=== PATIENT | female | born 1960 ===

== ENCOUNTER → 2020-11-17 | Outpatient (CLI) | payer SELFPAY ==
[~2020-11-17] MED LIST: COVID-19 VACCINE (PFIZER)/PF 30 MCG/0.3 ML VIAL IM ONE; EPINEPHRINE INJ/PF 1 MG/1 ML AMPULE IM PRN
== END ==
LOC: EMPHEALTH 09:03
PROVIDERS: ATTEND Internal Medicine
DX: Z23 Encounter for immunization (principal)
CPT/HCPCS: 91300

== ENCOUNTER → 2020-12-08 | Outpatient (CLI) | payer SELFPAY ==
--- OUTSIDE RECORDS SUMMARY | 2020-12-08 14:29 | XMS REPORT ---
:1960 [facility] [address] [place] [address] Care Team Providers Name Role Phone MARLON ANDERSON Primary Care Physician Unavailable ROBYN Attending Clinician Unavailable JAMES TOSCANO Attending Clinician Unavailable DI HARMON Attending Clinician Unavailable ODILIA ANDERSON Attending Clinician Unavailable PROVIDER, ORDERING Attending Clinician Unavailable ROBYN Admitting Clinician Unavailable Allergies, Adverse Reactions, Alerts This patient has no known allergies or adverse reactions. Medications Ordered Filled Start Stop Current Ordering Indication Dosage Frequency Signature Comments Components Medication Medication Date Date Medication? Clinician (SIG) Name Name buPROPion 2018-11 Yes Attention TAKE 1 TAKE 1 (WELLBUTRIN 2-17 deficit TABLET BY TA BLET BY XL) 150 MG 00:00: disorder, MOUTH MOUT H 24 hr 00 unspecified EVERY EVERY tablet hyperactivi MORNING MORNI NG ty presence buPROPion 2018-11- No Attention TAKE 1 TAKE 1 (WELLBUTRIN 1-21 12-17 deficit TABLET BY TA BLET BY XL) 150 MG 00:00: 00:00 disorder, MOUTH MOUT H 24 hr 00 :00 unspecified EVERY EVERY tablet hyperactivi MORNING MORNI NG ty presence buPROPion 2018-11- No Attention 150mg Take 1 Take 1 (WELLBUTRIN 1-18 11-21 deficit tablet table t XL) 150 MG 00:00: 00:00 disorder, (150 mg (1 50 mg 24 hr 00 :00 unspecified total) by bradley muñoz) by tablet hyperactivi mouth mouth ty presence every every morning. morning. butalbital- Yes Nonintracta 1{capsu Take 1 Take 1 acetaminoph 8-27 ble le} capsule by dorinda mora en-caff 00:00: headache, mouth by mout h (FIORICET) 00 unspecified every six every six 50-300-40 chronicity (6) hours ( 6) hours mg cap pattern, as needed as nee ded unspecified for for headache headache. headach e. type meclizine Yes Vertigo 12.5mg Take 1 Take 1 (ANTIVERT) 07-14 tablet tablet 12.5 mg 00:00: (12.5 mg (12.5 mg tablet 00 total) by total) by mouth mouth Three (3) Three (3) times a times a day as day as needed. needed. valACYclovi Yes Fever 1000mg Take 1 Take 1 r (VALTREX) 07-14 blister tablet table t 1000 MG 00:00: (1,000 mg (1,000 mg tablet 00 total) by total) by mouth mouth Three (3) Three (3) times a times a day. day. buPROPion 2019- No Attention 150mg Take 1 Take 1 (WELLBUTRIN 07-1418 deficit tablet table t XL) 150 MG 00:00: 00:00 disorder, (150 mg (1 50 mg 24 hr 00 :00 unspecified total) by bradley muñoz) by tablet hyperactivi mouth mouth ty presence every every morning. morning. valACYclovi 2019- No Fever 1000mg Take 1 Take 1 r (VALTREX) 07-14 blister tablet table t 1000 MG 00:00: 00:00 (1,000 mg (1,000 mg tablet 00 :00 total) by total) by mouth mouth Three (3) Three (3) times a times a day. day. meclizine 2018- No Vertigo 12.5mg Take 1 Take 1 (ANTIVERT) 07-14 tablet tablet 12.5 mg 00:00: 00:00 (12.5 mg (12.5 mg tablet 00 :00 total) by total) by mouth mouth Three (3) Three (3) times a times a day as day as needed. needed. butalbital- 2019- No Nonintracta 1{capsu Take 1 Take 1 acetaminoph 07-14 ble le} capsule by dorinda mora en-caff 00:00: 00:00 headache, mouth by mout h (FIORICET) 00 :00 unspecified every six every six 50-300-40 chronicity (6) hours ( 6) hours mg cap pattern, as needed as nee ded unspecified for for headache headache. headach e. type buPROPion 2018- No Attention 150mg Take 1 Take 1 (WELLBUTRIN 07-14 deficit tablet table t XL) 150 MG 00:00: 00:00 disorder, (150 mg (1 50 mg 24 hr 00 :00 unspecified total) by bradley muñoz) by tablet hyperactivi mouth mouth ty presence every every morning. morning. butalbital- 2018- No TAKE 1 TAKE 1 acetaminoph 05-06 CAPSULE BY DORINDA SHAMIR en-caff 00:00: 00:00 MOUTH BY MOUTH (FIORICET) 00 :00 THREE THREE 50-300-40 TIMES TIMES mg cap DAILY DAILY NEEDED FOR NEEDED HEADACHE FOR HEADACHE valACYclovi 2018- No TAKE 1 TAKE 1 r (VALTREX) 05-05 TABLET(100 TAB LET(10 1000 MG 00:00: 00:00 0 MG) BY 00 MG) B Y tablet 00 :00 MOUTH MOUTH THREE THREE TIMES TIMES DAILY DAILY gabapentin No 100mg Take 1 Take 1 (NEURONTIN) 03-23 capsule capsul e 100 MG 00:00: 00:00 (100 mg (100 mg capsule 00 :00 total) by total) b y mouth mouth Three (3) Three (3) times a times a day. for day. for 15 days 15 days butalbital- 2018- No 1{tbl} Take 1 Take 1 acetaminoph 2-20 02-20 tablet by tabl et by en-caffeine 18:33: 00:00 mouth mouth (FIORICET, 37 :00 every four ever y ESGIC) (4) hours four (4) 50-325-40 as needed hours as mg per for pain. needed tablet for pain. oxyCODONE-a 2018- No 1{tbl} Take 1 Take 1 cetaminophe 2-20 02-20 tablet by tabl et by n 13:10: 00:00 mouth mouth (PERCOCET) 49 :00 every six every six 5-325 mg (6) hours (6) blanche rs per tablet as needed as ne eded for pain. for pain. oxyCODONE-a 2019- No 1{tbl} Take 1-2 Alton e 1-2 cetaminophe 2-20 -27 tablets by tab lets n 00:00: 23:59 mouth by mouth (PERCOCET) 00 :00 every four ever y 5-325 mg (4) hours four (4 ) per tablet as needed hours as for pain. needed for up to for pain. 7 days for up to 7 days oxyCODONE-a 2019- No 1{tbl} Take 1-2 Alton e 1-2 cetaminophe 2-20 02-20 tablets by tab lets n 00:00: 00:00 mouth by mouth (PERCOCET) 00 :00 every four ever y 5-325 mg (4) hours four (4 ) per tablet as needed hours as for pain. needed for pain. cyclobenzap 2018- No 5mg Take 5 mg Alton e 5 mg rine 2-18 - by mouth by mouth (FLEXERIL) 13:29: 00:00 Three (3) Thre e (3) 5 MG tablet 12 :00 times a times a day as day as needed for needed muscle for spasms. muscle spasms. meclizine 2018- 2019- No 12.5mg Take 12.5 Take 12.5 (ANTIVERT) 2-18 08-27 mg by mg by 12.5 mg 13:29: 00:00 mouth mouth tablet 12 :00 Three (3) Three (3) times a times a day as day as needed. needed. oxyCODONE-a 2019- No TK 1 T PO TK 1 T PO cetaminophe 12-24 Q 6 H PRN Q 6 H PRN n 00:00: 00:00 (PERCOCET) 00 :00 5-325 mg per tablet cyclobenzap 2017-11 2019- No SI 5MG Take 1 Take 1 rine 12-24 (sacroiliac tablet (5 tabl et (5 (FLEXERIL) 00:00: 00:00 ) joint mg total) mg total) 5 MG tablet 00 :00 inflammatio by mouth by mouth n (CMS-HCC) Three (3) Thre e (3) times a times a day as day as needed for needed muscle for spasms. muscle spasms. HYDROcodone 2017-11- No SI 1{tbl} Take 1 Take 1 -acetaminop 12-24 (sacroiliac tablet b y tablet by adrian (NORCO) 00:00: 00:00 ) joint mouth mouth 5-325 mg 00 :00 inflammatio every four every per tablet n (CMS-HCC) (4) hours four (4) as needed hours as for pain. needed for pain. butalbital- 2017-11- No 1{capsu Take 1 Take 1 acetaminoph 11-26 le} capsule by cap shamir en-caff 00:00: 00:00 mouth by mouth (FIORICET) 00 :00 Three (3) Three (3) 50-300-40 times a times a mg cap day as day as needed for needed headache. for headache. ALPRAZolam 2018- No Anxiety .25MG Take 1 Take 1 (XANAX) 06-25 tablet tablet 0.25 MG 00:00: 00:00 (0.25 mg (0.25 mg tablet 00 :00 total) by total) by mouth mouth Three (3) Three (3) times a times a day as day as needed for needed anxiety. for anxiety. valACYclovi 2018- No 1000MG Take 1 Take 1 r (VALTREX) 06-23 tablet tablet 1000 MG 00:00: 00:00 (1,000 mg (1,000 mg tablet 00 :00 total) by total) by mouth mouth Three (3) Three (3) times a times a day. day. butalbital- 2017- No 1{capsu Take 1 Take 1 acetaminoph 06-23 le} capsule by cap shamir en-caff 00:00: 00:00 mouth by mouth (FIORICET) 00 :00 Three (3) Three (3) 50-300-40 times a times a mg cap day as day as needed for needed headache. for headache. diclofenac 2018- No 75MG Take 1 Take 1 (VOLTAREN) 05-2912 tablet (75 tabl et 75 MG EC 00:00: 23:59 mg total) (75 mg tablet 00 :00 by mouth total) by two (2) mouth two times a (2) times day as a day as needed needed (foot (foot pain). pain). meclizine 2018- No Vertigo 12.5mg Take 1 Take 1 (ANTIVERT) 03-14 tablet tablet 12.5 mg 00:00: 00:00 (12.5 mg (12.5 mg tablet 00 :00 total) by total) by mouth mouth Three (3) Three (3) times a times a day as day as needed. needed. butalbital- 2017- No 1{capsu Take 1 Take 1 acetaminoph 406-23 le} capsule by cap shamir en-caff 00:00: 00:00 mouth by mouth (FIORICET) 00 :00 Three (3) Three (3) 50-300-40 times a times a mg cap day as day as needed for needed headache. for headache. DULoxetine 2017- No Anxiety 60MG Take 1 Take 1 (CYMBALTA) 02-07 07-12 capsule capsule 60 MG 00:00: 00:00 (60 mg (60 mg capsule 00 :00 total) by total) b y mouth mouth daily. daily. oseltamivir No 75MG Take 1 Take 1 (TAMIFLU) 215 02-20 capsule capsule 75 MG 00:00: 23:59 (75 mg (75 mg capsule 00 :00 total) by total) b y mouth mouth every every twelve twelve (12) (12) hours. for hours. 5 days for 5 days lisdexamfet No 40MG Take 1 Take 1 amine 2-09 capsule capsule (VYVANSE) 00:00: (40 mg (40 mg 40 MG 00 total) by total) by capsule mouth mouth every every morning. morning. DULoxetine No Anxiety TAKE 1 TAKE 1 (CYMBALTA) 1-08 CAPSULE(30 CAPS ULE(3 30 MG 00:00: MG) BY 0 MG) BY capsule 00 MOUTH MOUTH TWICE TWICE DAILY DAILY tiZANidine 2016-11- No 4mg Take 1 Take 1 (ZANAFLEX) 0-13 10-13 tablet (4 table t (4 4 MG tablet 00:00: 23:59 mg total) mg total) 00 :00 by mouth by mouth every every eight (8) eight (8) hours as hours as needed. needed. diclofenac 2016-11- No 75mg Take 1 Take 1 (VOLTAREN) 013 -12 tablet (75 tabl et 75 MG EC 00:00: 00:00 mg total) (75 mg tablet 00 :00 by mouth total) by Two (2) mouth Two times a (2) times day. a day. ALPRAZolam 2017- No Anxiety .25mg Take 1 Take 1 (XANAX) 06-26 tablet tablet 0.25 MG 00:00: 00:00 (0.25 mg (0.25 mg tablet 00 :00 total) by total) by mouth mouth Three (3) Three (3) times a times a day as day as needed for needed anxiety. for anxiety. fluticasone 2018- No Headache, 2{spray 2 spray s 2 sprays (FLONASE) 08-17 unspecified } by Each by Each 50 00:00: 00:00 headache Nare route Nare mcg/actuati 00 :00 type daily. route on nasal daily. spray valACYclovi 2017- No TAKE 1 TAKE 1 r (VALTREX) 03-11 TABLET BY TABL ET BY 1000 MG 00:00: 00:00 MOUTH 3 MOUTH 3 tablet 00 :00 TIMES A TIMES A DAY DAY ESTRACE 2019- No ESTRACE 0.01 % (0.1 07-20 0.01 % mg/gram) 00:00: 00:00 (0.1 vaginal 00 :00 mg/gram) cream vaginal cream Problems Condition Condition Condition Status Onset Resolution Last Treatin g Comments Name Details Category Date Date Treatment Clinician Date Lumbar Lumbar 10239754 Active 2019-07-14 spinal spinal 07-14 14:19:44 stenosis stenosis 00:00: 00 Anxiety Anxiety Condition Active 2018-02-07 3 14:24:08 00:00: 00 ADD ADD Problem Inactive 2015-112016-10-26 (attention (attention 12-27 10:39:15 deficit deficit 00:00: disorder) disorder) 00 ADD ADD Condition Inactive 2015-112016-10-26 (attention (attention 12-27 10:39:15 deficit deficit 00:00: disorder) disorder) 00 ADD ADD [id number] Active 2015-1109 (attention (attention 12-27 10:39:15 deficit deficit 00:00: disorder) disorder) 00 Procedures Procedure Date / Time Performed Performing Clinician Sunil nicholson MRI LUMBAR SPINE WO CONTRAST 2019-03-27 19:59:00 Olivia Perry MRI LUMBAR SPINE WO CONTRAST 2019-03-27 19:59:00 Olivia Perry XR LUMBAR SPINE LATERAL 2019-01-07 13:50:11 Olivia Perry MRI LUMBAR SPINE WO CONTRAST 2018-11-26 10:33:19 Hannah Toscano XR KNEE BILATERAL AP STANDING 2018-05-29 20:20:28 Debra Harmon XR KNEE 2 VIEWS LEFT 2018-05-29 20:20:16 Az Harmon Results Test Description Test Time Test Comments Text Results Atomic Results Result Comments #[id number] 2019-03-27 MRI Lumbar Spi ne Wo Contrast (03/27/2019 15:59:00 3:59 PM EDT)SpecimenImpressi onsPerformed At1. Since the last MRI of , the patient has had a right mackenzie laminectomy at L4-5 with resection of the r ight ligamentum flavum. This has resulted in decreased severity of canal stenosis.2 . The lower lumbar canal is narrow on a developmental basis due to short pedicles. 3. The combination of short pedicle s, disc bulge, and facet hypertrophy at L4- 5 results in moderate/severe narrowing of the lateral recesses, which is unchanged .4. Facet arthropathy at L2-3, L3-4, a nd L5-S1 without canal stenosis, late ral recess narrowing, or foraminal narr owing. This is unchanged.5. Very mild centr al disc protrusion at L1-2, unchange d.[facility] RADNarrativePerformed AtExam :Lumbar Spine MRI without Contrast History:Right leg pain, recent lumbar laminectomy Technique:Co mplete MRI of the lumbar spine without con trast. Comparison:Lumbar spine MRI of 11/26/2018 Findings: There is no lumbar scoliosis. There is normal lumbar lordo sis. There is no malalignment. The pars in terarticulares are intact at all lumbar lev els. There is no compression fracture. Mar row signal intensity is normal througho ut the lumbar spine. The intervertebral di scs are normal in signal intensity and stat ure. The conus medullaris is normal in cont our, location, and signal intensity. The ti p of the conus is at the L1-2 level. The lo wer lumbar canal is narrow on a develop mental basis due to short pedicles. T11-1 2 and T12-L1: Normal. L1-2: There is a bautista y mild central disc protrusion without selene l stenosis or foraminal narrowing. L2-3: T here is mild chronic degenerative hypertr ophy of the zygapophyseal joints and mil d chronic degenerative hypertrophy of the ligamenta flava without canal stenosis or foraminal narrowing. L3-4: There is mi ld chronic degenerative hypertrophy of the zygapophyseal joints and mil d chronic degenerative hypertrophy of the ligamenta flava without canal stenosis or foraminal narrowing. L4-5: There is a mild central disc bulge. The patient has had a right hemilaminectomy with resecti on of the right ligamentum flavum since the last MRI. There is mild/moderate chronic deg enerative hypertrophy of the zygapophy seal joints and left ligamentum flavum, whic h is unchanged. Combined with short pedicles , these findings result in mild selene l stenosis and moderate/severe narrowing of the lateral recesses without significant foraminal narrowing. Compared to the p reoperative MRI of 11/26/2018, canal stenosis is decreased and lateral recess narrowing is unchanged. L5-S1: There is moderate chr onic degenerative hypertrophy of the zygapophyseal joints without hypertrophy of the ligamenta flava. There i s no canal stenosis, lateral recess nagi rowing, or foraminal narrowing. [facility] Procedure NoteInterface, Rad Results I n - 03/27/2019 4:16 PM EDTExam: Lumbar Spin e MRI without Contrast History: Right leg pain, recent lumbar laminectomy Technique : Complete MRI of the lumbar spine without contrast. Comparison: Lumbar spine MRI of 11/26/2018 Findings: There is no lumbar scoliosis. There is normal lumbar lordo sis. There is no malalignment. The pars in terarticulares are intact at all lumbar lev els. There is no compression fracture. Mar row signal intensity is normal througho ut the lumbar spine. The intervertebral di scs are normal in signal intensity and stat ure. The conus medullaris is normal in cont our, location, and signal intensity. The ti p of the conus is at the L1-2 level. The lo wer lumbar canal is narrow on a develop mental basis due to short pedicles. T11-1 2 and T12-L1: Normal. L1-2: There is a bautista y mild central disc protrusion without selene l stenosis or foraminal narrowing. L2-3: T here is mild chronic degenerative hypertr ophy of the zygapophyseal joints and mil d chronic degenerative hypertrophy of the ligamenta flava without canal stenosis or foraminal narrowing. L3-4: There is mi ld chronic degenerative hypertrophy of the zygapophyseal joints and mil d chronic degenerative hypertrophy of the ligamenta flava without canal stenosis or foraminal narrowing. L4-5: There is a mild central disc bulge. The patient has had a right hemilaminectomy with resecti on of the right ligamentum flavum since the last MRI. There is mild/moderate chronic deg enerative hypertrophy of the zygapophy seal joints and left ligamentum flavum, whic h is unchanged. Combined with short pedicles , these findings result in mild selene l stenosis and moderate/severe narrowing of the lateral recesses without significant foraminal narrowing. Compared to the p reoperative MRI of 11/26/2018, canal stenosis is decreased and lateral recess narrowing is unchanged. L5-S1: There is moderate chr onic degenerative hypertrophy of the zygapophyseal joints without hypertrophy of the ligamenta flava. There i s no canal stenosis, lateral recess nagi rowing, or foraminal narrowing. IMPRESS ION: 1. Since the last MRI of 11/26/2018, th e patient has had a right hemilaminectomy at L4-5 with resection of the right ligam entum flavum. This has resulted in decreas ed severity of canal stenosis. 2. The lower lumbar canal is narrow on a developmental basis due to short pedicles. 3. The combi nation of short pedicles, disc bulge, and fa cet hypertrophy at L4-5 results in moderate/ severe narrowing of the lateral rec esses, which is unchanged. 4. Facet arthropa thy at L2-3, L3-4, and L5-S1 without selene l stenosis, lateral recess narrowing, or foraminal narrowing. This is unchanged . 5. Very mild central disc protrusion at L 1-2, unchanged.Performing OrganizationAddressCity/Stat e/ZipcodePhone Number[facility] [id number] [place] [address] #[id number] 2019-03-27 MRI Lumbar Spi ne Wo Contrast (03/27/2019 15:59:00 3:59 PM EDT)SpecimenImpressi onsPerformed At1. Since the last MRI of , the patient has had a right mackenzie laminectomy at L4-5 with resection of the r ight ligamentum flavum. This has resulted in decreased severity of canal stenosis.2 . The lower lumbar canal is narrow on a developmental basis due to short pedicles. 3. The combination of short pedicle s, disc bulge, and facet hypertrophy at L4- 5 results in moderate/severe narrowing of the lateral recesses, which is unchanged .4. Facet arthropathy at L2-3, L3-4, a nd L5-S1 without canal stenosis, late ral recess narrowing, or foraminal narr owing. This is unchanged.5. Very mild centr al disc protrusion at L1-2, unchange d.[facility] RADNarrativePerformed AtExam :Lumbar Spine MRI without Contrast History:Right leg pain, recent lumbar laminectomy Technique:Co mplete MRI of the lumbar spine without con trast. Comparison:Lumbar spine MRI of 11/26/2018 Findings: There is no lumbar scoliosis. There is normal lumbar lordo sis. There is no malalignment. The pars in terarticulares are intact at all lumbar lev els. There is no compression fracture. Mar row signal intensity is normal througho ut the lumbar spine. The intervertebral di scs are normal in signal intensity and stat ure. The conus medullaris is normal in cont our, location, and signal intensity. The ti p of the conus is at the L1-2 level. The lo wer lumbar canal is narrow on a develop mental basis due to short pedicles. T11-1 2 and T12-L1: Normal. L1-2: There is a bautista y mild central disc protrusion without selene l stenosis or foraminal narrowing. L2-3: T here is mild chronic degenerative hypertr ophy of the zygapophyseal joints and mil d chronic degenerative hypertrophy of the ligamenta flava without canal stenosis or foraminal narrowing. L3-4: There is mi ld chronic degenerative hypertrophy of the zygapophyseal joints and mil d chronic degenerative hypertrophy of the ligamenta flava without canal stenosis or foraminal narrowing. L4-5: There is a mild central disc bulge. The patient has had a right hemilaminectomy with resecti on of the right ligamentum flavum since the last MRI. There is mild/moderate chronic deg enerative hypertrophy of the zygapophy seal joints and left ligamentum flavum, whic h is unchanged. Combined with short pedicles , these findings result in mild selene l stenosis and moderate/severe narrowing of the lateral recesses without significant foraminal narrowing. Compared to the p reoperative MRI of 11/26/2018, canal stenosis is decreased and lateral recess narrowing is unchanged. L5-S1: There is moderate chr onic degenerative hypertrophy of the zygapophyseal joints without hypertrophy of the ligamenta flava. There i s no canal stenosis, lateral recess nagi rowing, or foraminal narrowing. [facility] Procedure NoteInterface, Rad Results I n - 03/27/2019 4:16 PM EDTExam: Lumbar Spin e MRI without Contrast History: Right leg pain, recent lumbar laminectomy Technique : Complete MRI of the lumbar spine without contrast. Comparison: Lumbar spine MRI of 11/26/2018 Findings: There is no lumbar scoliosis. There is normal lumbar lordo sis. There is no malalignment. The pars in terarticulares are intact at all lumbar lev els. There is no compression fracture. Mar row signal intensity is normal througho ut the lumbar spine. The intervertebral di scs are normal in signal intensity and stat ure. The conus medullaris is normal in cont our, location, and signal intensity. The ti p of the conus is at the L1-2 level. The lo wer lumbar canal is narrow on a develop mental basis due to short pedicles. T11-1 2 and T12-L1: Normal. L1-2: There is a bautista y mild central disc protrusion without selene l stenosis or foraminal narrowing. L2-3: T here is mild chronic degenerative hypertr ophy of the zygapophyseal joints and mil d chronic degenerative hypertrophy of the ligamenta flava without canal stenosis or foraminal narrowing. L3-4: There is mi ld chronic degenerative hypertrophy of the zygapophyseal joints and mil d chronic degenerative hypertrophy of the ligamenta flava without canal stenosis or foraminal narrowing. L4-5: There is a mild central disc bulge. The patient has had a right hemilaminectomy with resecti on of the right ligamentum flavum since the last MRI. There is mild/moderate chronic deg enerative hypertrophy of the zygapophy seal joints and left ligamentum flavum, whic h is unchanged. Combined with short pedicles , these findings result in mild selene l stenosis and moderate/severe narrowing of the lateral recesses without significant foraminal narrowing. Compared to the p reoperative MRI of 11/26/2018, canal stenosis is decreased and lateral recess narrowing is unchanged. L5-S1: There is moderate chr onic degenerative hypertrophy of the zygapophyseal joints without hypertrophy of the ligamenta flava. There i s no canal stenosis, lateral recess nagi rowing, or foraminal narrowing. IMPRESS ION: 1. Since the last MRI of 11/26/2018, th e patient has had a right hemilaminectomy at L4-5 with resection of the right ligam entum flavum. This has resulted in decreas ed severity of canal stenosis. 2. The lower lumbar canal is narrow on a developmental basis due to short pedicles. 3. The combi nation of short pedicles, disc bulge, and fa cet hypertrophy at L4-5 results in moderate/ severe narrowing of the lateral rec esses, which is unchanged. 4. Facet arthropa thy at L2-3, L3-4, and L5-S1 without selene l stenosis, lateral recess narrowing, or foraminal narrowing. This is unchanged . 5. Very mild central disc protrusion at L 1-2, unchanged.Performing OrganizationAddressCity/Stat e/ZipcodePhone Number[facility] [id number] [facility] [place] [address] XR Lumbar Spine 1 View 2019-01-07 XR Lumbar Spine 1 View (01/07/2019 1:50 PM) 13:58:48 Impressions Performed At 1. Posterior localization of the L5-S1 le nviia. Signed (Electronic Signature): 01/07 1:59 PM Signed By: Fabricio Rosas MD [facility] Narrative Performed At Exam: Lumbar Spine - Lateral View History:58-year-old unde rgoing lumbar surgery. Technique:Singl e lateral view Comparison:MRI from 2018 Findings:Localizing need le projects posteriorly directed towards the L5-S1 level. The lateral alignment is anatomic. No evidence of acute fractur e. The disc spaces are normal. There are no focal osseous lesions identified. [facility] Procedure Note Ra srini Banks Results In - 01/07/2019 2:05 PM EST Exam: Lumbar Spine - Lateral View History: 58-yea r-old undergoing lumbar surgery. T echnique: Single lateral view Comparis on: MRI from 11/26/2018 Findings: Localizin g needle projects posteriorly directe d towards the L5-S1 level. The lateral ali gnment is anatomic. No evidence of acu te fracture. The disc spaces are normal. There are no focal osseous lesions identi fied. IMPRESSION: 1. Posterior loc alization of the L5-S1 level. Signed (Rubina ctronic Signature): 01/07/2019 1:59 P M Signed By: Fabricio Rosas MD Performi Organization Address City/State/[facility] P [facility]rin Number [facility] [address] [place] [address] MRI Lumbar Spine Wo Contrast 2018-11-26 MRI Lumbar Spine Wo Contrast (11/26/2018 11:28:11 10:33 AM) Impressions Perfor med At 1. At L4-5, disc and facet degener ation cause moderate canal and mild neur al foraminal stenosis. 2. Disc and facet degeneration elsewhere throughout the lum bar spine without significant neural i mpingement. Signed (Electronic Signature ): 11/26/2018 11:29 AM Signed By: Shaka lancaster MD [facility] Narrative Performed At E xam:MRI Lumbar Spine without contras t History:Pain. Technique: Complete MRI of the lumbar spine with out contrast. Comparison:None. Finding s: Normal alignment. No significant di sc degeneration. No abnormal juan antonio ne marrow signal intensity. No acute f racture or pars defect. Conus terminates nor dirk. Cauda equina nerve roots unremarka ble. Imaged abdomen and pelvic soft tiss ues unremarkable. Lower thoracic levels:No significant focal abnormalit y. L1-2:Mild disc bulge. L2 -3:Very mild disc bulge and mild fac et arthropathy. L3-4:Mild facet arthropa thy. L4-5:Mild disc bulge and moderate facet arthropathy. Moderate canal stenosis. Mild neural foraminal narrowing. L5-S1:Mild to moderate right greater th an left facet arthropathy. No focal disc p athology. [facility] Procedure Note Interface , Rad Results In - 11/26/2018 11:32 AM EST Exam: MRI Lumbar Spine without contras t History: Pain. Technique: Complete MR I of the lumbar spine without contrast. Comp arison: None. Findings: Normal alignment. No significant disc degeneration. No abnorm al bone marrow signal intensity. No acute f racture or pars defect. Conus terminates nor dirk. Cauda equina nerve roots unremarka ble. Imaged abdomen and pelvic soft tiss ues unremarkable. Lower thoracic levels: No significant focal abnormalit y. L1-2: Mild disc bulge. L2-3: Very mild disc bulge and mild facet arthropathy. L3-4 : Mild facet arthropathy. L4-5: Mild disc bulge and moderate facet arthropathy. Moderate canal stenosis. Mild neural forami nal narrowing. L5-S1: Mild to moderate righ t greater than left facet arthropathy. No f ocal disc pathology. IMPRESSION: 1. At L4-5, disc and facet degeneration cause mod erate canal and mild neural foraminal stenos is. 2. Disc and facet degeneration elsewhere throughout the lumbar spine without signifi cant neural impingement. Signed (Electro alex Signature): 11/26/2018 11:29 AM Signed By: Shaka Ramirez MD Performing Orga nization Address City/State/Zipcode P nasrin Number [facility] [address] [place] [address] #[id number] 2018-05-29 XR Kn ee 1 or 2 Views Left (05/29/2018 4:20 17:04:53 PM EDT)SpecimenImpressionsPe rformed AtSmall left knee effusion with no e vidence of acute osseous abnormality.EM C RADNarrativePerformed AtEXAM : XR KNEE 1 OR 2 VIEWS LEFTDATE: 05/29/2018 4:20 PMACCESSION: [id number] CTATED: 05/29/2018 5:04 PMINTERPRETAT ION LOCATION: [facility] [place] CLINICAL INDICAT ION: 57 years old Female with pain-M25.569 -Knee pain, unspecified chronicity, unsp ecified laterality COMPARISON: B ilateral knee radiographs dated 05/29/2018 TECHNIQUE: Lorena and lateral views of the left knee. FINDINGS: There is no acute fracture or dislocation. The joint space s and articulation are preserved. There is mild osteophytosis. There is a sm all joint effusion. There is no soft t issue abnormality. [facility] RADProcedur e NoteInterface, Rad Results I n - 05/29/2018 5:25 PM EDTEXAM: XR KNEE 1 O R 2 VIEWS LEFT DATE: 05/29/2018 4:20 PM ACCE SSION: [id number] DICTATED: 05/29 5:04 PM INTERPRETATION LOCATION: [facility] CLINICAL INDICATION: 57 year s old Female with pain-M25.569-Knee pain, unspecified chronicity, unspecified late rality COMPARISON: Bilateral knee r adiographs dated 05/29/2018 TECHNIQUE: S unrise and lateral views of the left kn ee. FINDINGS: There is no acute fracture o r dislocation. The joint spaces and articul ation are preserved. There is mild ost eophytosis. There is a small joint effus ion. There is no soft tissue abnormality. IMPRESSION: Small left knee effusion wit h no evidence of acute osseous abnormality .Performing OrganizationAddressCity/Stat e/ZipcodePhone Number[id number] [place] [address] #[id number] 2018-05-29 XR Kn ee AP Standing, Bilateral (05/29/2018 16:52:55 4:20 PM EDT)SpecimenImpressi onsPerformed AtNo acute osseous abnormali ty of bilateral knees.[facility] RADNarrativePerfor med AtEXAM: XR KNEE BILATERAL AP STANDINGDA TE: 05/29/2018 4:20 PMACCESSION: [id number]: 05/29/2018 4:52 PMINTERPRETAT ION LOCATION: [facility] CLINICAL INDICAT ION: 57 years old Female with pain-M25.569 -Knee pain, unspecified chronicity, unsp ecified laterality COMPARISON: N one. TECHNIQUE: AP standing view of both kne es. FINDINGS: There is no acute fracture o r dislocation. Bilateral tibiofemoral joint space and articulation is preserved. T here is bilateral tibial spine spurr ing. There is no soft tissue abnormality. [facility] RADProcedure NoteInterface, Rad Results In - 05/29/2018 5:24 PM EDTEXAM : XR KNEE BILATERAL AP STANDING DATE: 05/29/2018 4:20 PM DICTATED: 05/29/2018 4:52 PM INTERPRETA TION LOCATION: [facility] CLINICAL INDICAT ION: 57 years old Female with pain-M25.569 -Knee pain, unspecified chronicity, unsp ecified laterality COMPARISON: None. TECHNIQUE: AP standing view of both knees. FINDINGS: There is no acute fracture o r dislocation. Bilateral tibiofemoral joint space and articulation is preserved. T here is bilateral tibial spine spurr ing. There is no soft tissue abnormality. IMPRESSION: No acute osseous abnormality of bilateral knees.Performing OrganizationAddressCity/Stat e/ZipcodePhone NumberPARKWOOD [facility] [place] [address] XR Knee AP Standing, 2018-05-29 XR Knee AP Standing, Bilateral (05/29/2018 Bilateral 16:20:28 4:20 PM) Specimen Performing Laboratory [facility] [address] [place] [address] Impressions No acute osseous abnormality of bilateral knees. Narrative E XAM: XR KNEE BILATERAL AP STANDING DATE: 05/29/2018 4:20 PM DICTATED: 05/29/2018 4:52 PM INTERPRETA TION LOCATION: [facility] CLINICAL INDICAT ION: 57 years old Female with pain-M25.569 -Knee pain, unspecified chronicity, unsp ecified laterality COMPARISON: N one. TECHNIQUE: AP standing view of both kne es. FINDINGS: There is no acute fracture o r dislocation. Bilateral tibiofemoral joint space and articulation is preserved. T here is bilateral tibial spine spurr ing. There is no soft tissue abnormality. Procedure Note Interface, Rad Results In - 05/29/2018 5:24 PM EDT EXAM: XR KNEE BILATER AL AP STANDING DATE: 05/29/2018 4:20 PM ACCE SSION: [id number] DICTATED: 05/29 4:52 PM INTERPRETATION LOCATION: [facility] CLINICAL INDICATION: 57 year s old Female with pain-M25.569-Knee pain, unspecified chronicity, unspecified late rality COMPARISON: None. TECHNIQUE: AP standing view of both knees. FINDINGS : There is no acute fracture or dislocatio n. Bilateral tibiofemoral joint space and articulation is preserved. There is bilat eral tibial spine spurring. There is no soft tissue abnormality. IMPRESSION: No acute osseous abnormality of bilateral kne es. XR Knee 1 or 2 Views Left 2018-05-29 XR Kne e 1 or 2 Views Left (05/29/2018 4:20 16:20:16 PM) Specimen Performing [facility] [address] [place] [address] Impressions Small left knee effusion with no evidence of acute osseous abnormality. Narrative EXAM: XR KNEE 1 OR 2 VIEWS LEFT DATE: 05/29/2018 4:20 PM ACCE SSION: [id number] DICTATED: 05/29 5:04 PM INTERPRETATION LOCATION: [facility] CLINICAL INDICATION: 57 year s old Female with pain-M25.569-Knee pain, unspecified chronicity, unspecified late rality COMPARISON: Bilateral knee r adiographs dated 05/29/2018 TECHNIQUE: S unrise and lateral views of the left kn ee. FINDINGS: There is no acute fracture o r dislocation. The joint spaces and articul ation are preserved. There is mild ost eophytosis. There is a small joint effus ion. There is no soft tissue abnormality. Procedure Note Interface, Rad Results In - 05/29/2018 5:25 PM EDT EXAM: XR KNEE 1 OR 2 VIEWS LEFT DATE: 05/29/2018 4:20 PM ACCE SSION: [id number] DICTATED: 05/29 5:04 PM INTERPRETATION LOCATION: [facility] CLINICAL INDICATION: 57 year s old Female with pain-M25.569-Knee pain, unspecified chronicity, unspecified late rality COMPARISON: Bilateral knee r adiographs dated 05/29/2018 TECHNIQUE: S unrise and lateral views of the left kn ee. FINDINGS: There is no acute fracture o r dislocation. The joint spaces and articul ation are preserved. There is mild ost eophytosis. There is a small joint effus ion. There is no soft tissue abnormality. IMPRESSION: Small left knee effusion wit h no evidence of acute osseous abnormality . Influenza A and B Antigens 2018-01-02 10:03:00 Test Item Value Reference Range Comments Influenza A Ag, EIA (test code = Influenza A Ag, EIA) Negative Negative Influenza B Ag, EIA (test code = Influenza B Ag, EIA) Negative Negative Encounters Start End Encounter Admission Attending Care Care Encounter ID Date/Time Date/Time Type Type Clinicians Facility Department 2020-05-24 2020-05-24 [facility] [id number] 00:00:00 00:00:00 2019 2019 [facility] [id number] 00:00:00 00:00:00 2019-10-08 2019-10-08 [facility] [id number] 00:00:00 00:00:00 2019-10-05 2019-10-05 [facility] [id number] 00:00:00 00:00:00 2019-08-18 2019-08-18 Outpatient [facility] [id number] 00:00:00 00:00:00 [id number] 2019-07-14 2019-07-14 [facility] [id number] 13:57:46 14:40:51 2019-07-14 2019-07-14 Outpatient [facility] [id number] 13:57:46 14:40:51 [id number] 2019-07-14 2019-07-14 Outpatient [facility] [id number] 00:00:00 00:00:00 [id number] 2019-05-06 2019-05-06 [facility] [id number] 00:00:00 00:00:00 2019-05-05 2019-05-05 [facility] [id number] 00:00:00 00:00:00 2019-04-01 2019-04-01 [facility] [id number] 14:21:25 15:02:25 2019-03-27 2019-03-27 [facility] [id number] 15:30:00 23:59:00 2019-03-16 2019-03-27 Outpatient EL ROBYN[facility] [id number] 11:18:12 23:59:00 OLIVIA [id number] 2019-03-23 2019-03-23 [facility] [id number] 11:18:30 12:55:16 2019-03-13 2019-03-13 Outpatient [facility] ROBYN[facility] [id number] 13:57:21 23:59:00 OLIVIA [id number] 2019-03-13 2019-03-13 [facility] [id number] 13:57:21 23:59:00 2019-03-13 2019-03-13 [facility] [id number] 12:12:05 12:27:05 2019-03-13 2019-03-13 Outpatient EL RANDALLIN, [facility] [id number] 00:00:00 00:00:00 OLIVIA [id number] 2019-02-20 2019-02-20 [facility] [id number] 12:32:23 13:00:00 2019-01-19 2019-01-19 [facility] [id number] 10:10:32 10:15:00 2019-01-07 2019-01-07 [facility] [id number] 11:20:00 18:33:00 2019-01-07 2019-01-07 X EL RANDALLIN, [facility] [id number] 11:20:00 18:33:00 OLIVIA [id number] 2019-01-07 2019-01-07 X [facility] [id number] 13:35:04 13:35:04 [id number] 2019-01-07 2019-01-07 X EL RANDALLIN, [facility] [id number] 13:00:00 13:00:00 OLIVIA [id number] 2019-01-07 2019-01-07 X [facility] [id number] 00:00:00 00:00:00 [id number] 2019-01-07 2019-01-07 [facility] [id number] 00:00:00 00:00:00 2019-01-07 2019-01-07 [facility] [id number] 00:00:00 00:00:00 2018-12-29 2018-12-29 [facility] [id number] 10:03:08 11:43:07 2018-11-28 2018-11-28 R [facility] [id number] 00:00:00 00:00:00 [id number] 2018-11-26 2018-11-26 Outpatient EL EVERTON, [facility] [id number] 09:25:26 23:59:00 HANNAH [id number] 2018-11-26 2018-11-26 [facility] [id number] 09:25:26 23:59:00 2018-11-26 2018-11-26 Outpatient [facility] [id number] 00:00:00 00:00:00 [id number] 2018-11-25 2018-11-25 R [facility] [id number] 00:00:00 00:00:00 [id number] 2018-10-23 2018-10-23 Outpatient [facility] [id number] 08:57:01 10:09:39 [id number] 2018-10-23 2018-10-23 Outpatient [facility] [id number] 00:00:00 00:00:00 [id number] 2018-10-16 2018-10-16 [facility] [id number] 09:13:40 11:00:52 2018-09-26 2018-09-26 [facility] [id number] 00:00:00 00:00:00 2018-09-18 2018-09-18 [facility] [id number] 09:58:38 11:00:00 2018-09-15 2018-09-15 [facility] [id number] 00:00:00 00:00:00 2018-06-25 2018-06-25 [facility] [id number] 00:00:00 00:00:00 2018-06-23 2018-06-23 [facility] [id number] 00:00:00 00:00:00 2018-06-23 2018-06-23 [facility] [id number] 00:00:00 00:00:00 2018-05-29 2018-05-29 [facility] [id number] 16:14:09 23:59:00 2018-05-29 2018-05-29 [facility] [id number] 16:13:41 23:59:00 2018-05-29 2018-05-29 Outpatient [facility] [id number] 15:28:56 16:42:00 [id number] 2018-05-29 2018-05-29 [facility] [id number] 15:28:56 16:42:00 2018-05-29 2018-05-29 Outpatient [facility] [id number] 16:14:09 16:14:09 [place] [id number] 2018-05-29 2018-05-29 Outpatient [facility] [id number] 16:13:41 16:13:41 [place] [id number] 2018-05-29 2018-05-29 Outpatient [facility] [id number] 00:00:00 00:00:00 [id number] 2018-03-14 2018-03-14 Outpatient [facility] [id number] 11:14:21 12:13:56 [id number] 2018-03-14 2018-03-14 Outpatient [facility] [id number] 00:00:00 00:00:00 [id number] 2018-02-07 2018-02-07 Outpatient [facility] [id number] 13:29:27 14:39:04 [id number] 2018-02-07 2018-02-07 Outpatient [facility] [id number] 00:00:00 00:00:00 [id number] 2018-01-02 2018-01-02 [facility] [id number] 10:17:44 11:29:00 2017-11-05 2017-11-05 Outpatient [facility] [id number] 00:00:00 00:00:00 [id number] 2017-08-30 2017-08-30 Outpatient [facility] [id number] 09:41:37 10:25:02 [id number] 2017-08-30 2017-08-30 Outpatient [facility] [id number] 00:00:00 00:00:00 [id number] 2017-08-06 2017-08-06 Outpatient [facility] [id number] 08:28:48 08:53:02 [id number] 2017-08-06 2017-08-06 Outpatient [facility] [id number] 00:00:00 00:00:00 [id number] 2017-06-26 2017-06-26 Outpatient [facility] [id number] 08:47:34 09:33:59 [id number] 2017-06-21 2017-06-21 Outpatient [facility] [id number] 00:00:00 00:00:00 [id number] 2017-06-18 2017-06-18 Outpatient [facility] [id number] 14:16:30 15:44:58 [id number] 2017-06-18 2017-06-18 Outpatient [facility] [id number] 00:00:00 00:00:00 [id number] 2016-11-23 2016-11-23 Outpatient [facility] [id number] 08:29:35 09:02:44 [id number] 2016-11-23 2016-11-23 Outpatient [facility] [id number] 00:00:00 00:00:00 [id number] 2016-10-26 2016-10-26 Outpatient EL MONICA [facility] [id number] 09:23:16 10:58:23 MARLON [id number] 2016-10-26 2016-10-26 Outpatient [facility]O [facility]RANO [facility] [id number] 00:00:00 00:00:00 MARLON [id number] 2016-10-19 2016-10-19 Outpatient [facility] [id number] 08:04:16 08:13:38 [id number] 2016-10-19 2016-10-19 Outpatient [facility] [id number] 00:00:00 00:00:00 [id number] 2016-10-10 2016-10-10 Outpatient [facility] [id number] 00:00:00 00:00:00 [id number] 2016-09-19 2016-09-19 Outpatient [facility] [id number] 00:00:00 00:00:00 [id number] 2016-08-17 2016-08-17 Outpatient GAEL ANDERSON [facility] [id number] 09:00:28 09:39:49 MARLON [id number] 2016-08-17 2016-08-17 Outpatient [facility] [id number] 00:00:00 00:00:00 [id number] 2016-04-23 2016-04-23 Outpatient EL PROVIDER, [facility] [id number] 00:00:00 00:00:00 EXTERNAL [id number] 2016-03-23 2016-03-23 Outpatient EL PROVIDER, [facility] [id number] 15:08:46 23:59:00 EXTERNAL [id number] 2016-03-23 2016-03-23 Outpatient EL [facility] [id number] 00:00:00 00:00:00 [id number] Payers Payer Name Policy Type Policy Number Effective Date Expiration D ate R [id number] 2014 00:00:00 Plan of Treatment Planned Activity Planned Date Details Comments Future Scheduled Test [code = ] Future Scheduled Test [code = ] Future Scheduled Test [code = ] Future Scheduled Test [code = ] Future Scheduled Test [code = ] Future Scheduled Test [code = ] Future Scheduled Test [code = ] Future Scheduled Test [code = ] Future Scheduled Test [code = ] Future Scheduled Test [code = ] Social History Social Habit Start Date Stop Date Comments Tobacco smoking status NHIS 2019-07-14 00:00:00 2019-07-14 00:00 :00 Alcohol intake 2019-07-14 00:00:00 2019-07-14 00:00:00 Alcohol Comment 2019-01-05 00:00:00 2019-01-05 00:00:00 Vital Signs Vital Name Observation Time Observation Value Comments Systolic blood pressure 2019-07-14 14:07:00 132 mm[Hg] Diastolic blood pressure 2019-07-14 14:07:00 80 mm[Hg] Heart rate 2019-07-14 14:07:00 73 /min Body height 2019-07-14 14:07:00 166.4 cm Body weight 2019-07-14 14:07:00 68.947 kg Oxygen saturation in Arterial blood by 2019-07-14 14:07:00 99 % Pulse oximetry Systolic blood pressure 2019-04-01 14:35:00 132 mm[Hg] Diastolic blood pressure 2019-04-01 14:35:00 59 mm[Hg] Heart rate 2019-04-01 14:35:00 87 /min Body height 2019-04-01 14:35:00 166.4 cm Body weight 2019-04-01 14:35:00 70.761 kg Systolic blood pressure 2019-03-23 11:27:00 166 mm[Hg] Diastolic blood pressure 2019-03-23 11:27:00 77 mm[Hg] Heart rate 2019-03-23 11:27:00 69 /min Body temperature 2019-03-23 11:27:00 36.83 [place] Respiratory rate 2019-03-23 11:27:00 16 /min Body height 2019-03-23 11:27:00 166.4 cm Body weight 2019-03-23 11:27:00 70.9 kg Oxygen saturation in Arterial blood by 2019-03-23 11:27:00 100 % Pulse oximetry SYSTOLIC BLOOD PRESSURE 2019-01-07 18:10:00 133 mm[Hg] DIASTOLIC BLOOD PRESSURE 2019-01-07 18:10:00 67 mm[Hg] HEART RATE 2019-01-07 18:10:00 86 /min BODY TEMPERATURE 2019-01-07 18:10:00 36.39 [place] RESPIRATORY RATE 2019-01-07 18:10:00 16 /min OXYGEN SATURATION 2019-01-07 18:10:00 97 % HEIGHT 2019-01-07 11:57:00 166.4 cm WEIGHT 2019-01-07 11:57:00 68.584 kg HEIGHT 2018-10-16 09:13:00 166.4 cm WEIGHT 2018-10-16 09:13:00 69.854 kg HEIGHT 2018-09-18 10:00:00 166.6 cm WEIGHT 2018-09-18 10:00:00 69.854 kg SYSTOLIC BLOOD PRESSURE 2018-05-29 15:39:00 144 mm[Hg] DIASTOLIC BLOOD PRESSURE 2018-05-29 15:39:00 80 mm[Hg] HEART RATE 2018-05-29 15:39:00 74 /min BODY TEMPERATURE 2018-05-29 15:39:00 37 [place] RESPIRATORY RATE 2018-05-29 15:39:00 16 /min HEIGHT 2018-05-29 15:39:00 166.4 cm WEIGHT 2018-05-29 15:39:00 67.586 kg OXYGEN SATURATION 2018-05-29 15:39:00 98 % SYSTOLIC BLOOD PRESSURE 2018-01-02 09:56:00 141 mm[Hg] DIASTOLIC BLOOD PRESSURE 2018-01-02 09:56:00 81 mm[Hg] HEART RATE 2018-01-02 09:56:00 75 /min BODY TEMPERATURE 2018-01-02 09:56:00 37.11 [place] RESPIRATORY RATE 2018-01-02 09:56:00 18 /min HEIGHT 2018-01-02 09:56:00 166.4 cm WEIGHT 2018-01-02 09:56:00 66.679 kg OXYGEN SATURATION 2018-01-02 09:56:00 100 %
== END ==
LOC: EMPHEALTH 09:03
PROVIDERS: ATTEND Internal Medicine
DX: Z23 Encounter for immunization (principal)
CPT/HCPCS: 91300